=== PATIENT | male | born 1980 | race Caucasian/White ===

== ENCOUNTER 2017-08-18 16:14 | Inpatient (IN) | payer BC ==
[~2017-08-18] VITALS: Ht 177.8 cm; Wt 76.2 kg
[2017-08-18] MEDS ORDERED: SUCR1TAB PO (16:30)
[2017-08-18] MEDS ORDERED: PANT40TA2 PO (16:30)
[2017-08-18] MEDS ORDERED: PANTOPRAZOLE SODIUM IV 80 MG in IV DEXTROSE 5% 100 ML IV ONE (16:30)
[2017-08-18] MEDS ORDERED: PANTOPRAZOLE SODIUM IV 80 MG in IV DEXTROSE 5% 500 ML IV ONE (16:30)
[2017-08-18] MEDS ORDERED: CEFTRIAXONE 1 G in IV DEXTROSE 5% 50 ML IV ONE (16:30)
[2017-08-18] MEDS ORDERED: OCTREOTIDE ACETATE DRIP 1,250 MCG in IV NORMAL SALINE 250 ML IV ONE (16:30)
[2017-08-18] MEDS ORDERED: SPIR50TA3 PO (16:30)
[2017-08-18] MEDS ORDERED: OCTREOTIDE ACETATE IV ONE (16:30)
[2017-08-18] MEDS ORDERED: NORMAL SALINE IV ONE (16:30)
[2017-08-18] MEDS ORDERED: IV NORMAL SALINE 1000 ML BAG IV ONE ×2 (16:30→21:29)
[2017-08-18 16:58] LABS: BASOPHILS % (AUTO) 0.2 % (0.0-2.0); EOSINOPHILS # (AUTO) 0.1 K/uL (0.0-0.7); EOSINOPHILS % (AUTO) 3.1 % (0.0-7.0); HEMATOCRIT 26.6 % (40-50); HEMOGLOBIN 8.4 G/DL (14.0-18.0); LYMPHOCYTES # (AUTO) 0.4 K/UL (0.8-4.8); LYMPHOCYTES % (AUTO) 12.7 % (20.5-51.5); MEAN CORPUSCULAR HEMOGLOBIN 23.5 UUG (27.0-31.0); MEAN CORPUSCULAR HGB CONC 31 g/dL (32.0-37.0); MEAN CORPUSCULAR VOLUME 74.6 FL (82.0-92.0); MONOCYTES # (AUTO) 0.2 K/UL (0.1-1.30); MONOCYTES % (AUTO) 6.3 % (0.0-11.0); NEUTROPHILS # (AUTO) 2.5 K/UL (1.8-8.9); NEUTROPHILS % (AUTO) 77.7 % (38.5-71.5); RED BLOOD CELL COUNT(AUTO) 3.56 MIL/UL (4.7-6.1); WHITE BLOOD COUNT (AUTO) 3.2 K/UL (4.0-11.2)
[2017-08-18] MEDS ORDERED: ONDANSETRON IV *ER 4 MG/2 ML VIAL IV ONE ×2 (17:00→17:15)
[2017-08-18] MEDS ORDERED: CEFTRIAXONE 1 G VIAL ONE (17:05)
[2017-08-18] MEDS ORDERED: ONDANSETRON 4 MG/2 ML VIAL ONE ×2 (17:05→17:27)
[2017-08-18] MEDS ORDERED: PANTOPRAZOLE SODIUM 40 MG VIAL ONE (17:05)
[2017-08-18 17:07] LABS: CREATININE 0.7 mg/dL (0.6-1.3); POTASSIUM 4.3 mmol/L (3.5-5.1)
--- NOTE | 2017-08-18 17:07 | NUR ---
1641- [employer] L[employer] CENTERER AND EDGER Bhavesh inserted PIV lines to both forearms with sterile technique
[2017-08-18 17:11] LABS: BILIRUBIN,DIRECT 0.4 mg/dL (0.0-0.2); BILIRUBIN,TOTAL 1.3 mg/dL (0.2-1.0); TOTAL PROTEIN, SERUM 6.2 g/dL (6.4-8.2)
[2017-08-18 17:15] LABS: PLATELET COUNT (AUTO) 42 K/UL (150-450)
--- NOTE | 2017-08-18 18:35 | NUR ---
Per nursing supervisor pile driving Constance, it will be "after change of shift" when patient can go to [facility]. No [facility] nurse available at this time. Patient notified.
[2017-08-18 18:43] LABS: EOSINOPHILS % (MANUAL) 3 % (0-8); LYMPHOCYTES % (MANUAL) 12 % (20-40); MONOCYTES % (MANUAL) 5 % (2-10); NEUTROPHILS % (MANUAL) 80 % (42-75)
--- NOTE | 2017-08-18 18:54 | NUR ---
Patient c/o severe abdominal pains, denies nausea, MD notified. Comfort and safety measures maintained. Extra warm blankets provided, still for an accepting [facility] nurse at this time.
[2017-08-18] MEDS ORDERED: HYDROMORPHONE 1 MG/1 ML DISP.SYRIN IV ONE (19:00)
--- NOTE | 2017-08-18 19:09 | NUR ---
Received report from AMEYA Szymanski. Assumed care of pt at this time. Admission pending.
[2017-08-18] MEDS ORDERED: HYDROMORPHONE 2 MG/1 ML DISP.SYRIN ONE (19:10)
--- NOTE | 2017-08-18 19:39 | NUR ---
Pt active vomiting of dark red blood approx [address] Melton notified and pt medicated. Will monitor for effects of medication. Pt resting in position of comfort for self
[2017-08-18] MEDS ORDERED: METOCLOPRAMIDE HCL 10 MG/2 ML VIAL IV ONE (19:45)
[2017-08-18] MEDS ORDERED: METOCLOPRAMIDE HCL 10 MG/2 ML VIAL ONE (19:48)
--- NOTE | 2017-08-18 19:50 | NUR ---
No further vomiting noted. at bedside.
--- NOTE | 2017-08-18 19:57 | NUR ---
Report given to AMEYA Gonzalez. Preparing to transfer pt to the floor.
--- NOTE | 2017-08-18 20:05 | NUR ---
Delay in transfer of pt to the floor per Dr. Lancaster wanting to expedite pt's procedure by having it done here in the ER or in GI lab. Daina, nursing food service kitchen supervisor notified and awaiting call back.
--- NOTE | 2017-08-18 20:20 | NUR ---
Pt to have procedure done in GI lab. GI team called in and awaiting their arrival. Dr. Tesfaye and pt updated on plan of care.
[2017-08-18] MEDS ORDERED: ACETAMINOPHEN 650 MG SUPP.RECT RC PRN (20:30)
--- NOTE | 2017-08-18 20:30 | NUR ---
Pt resting in position of comfort for self. No obvious signs of distress. No further vomiting noted at this time. Pt denies abd pain but does complain of a minor sore throat from previous vomiting. Cont waiting arrival of GI lab team.
[2017-08-18 21:04] LABS: IRON, SERUM 26 ug/dL (50-175)
--- NOTE | 2017-08-18 21:05 | NUR ---
GI clinical lab assistant at bedside to take pt to GI lab, however requested pre-op forms other than consent completed prior to transfer.
--- NOTE | 2017-08-18 21:25 | NUR ---
Pt left ER via [facility] for GI lab with GI lab RNs.
[2017-08-18] MEDS ORDERED: LIDOCAINE HCL 1% 20 ML VIAL MC ONE (21:29)
[2017-08-18] MEDS ORDERED: PROPOFOL 200 MG/20 ML BOTTLE IV ONE (21:29)
[2017-08-18] MEDS ORDERED: PHYTONADIONE 10 MG/1 ML AMPUL ONE (23:18)
[2017-08-18] MEDS ORDERED: SUCRALFATE 1 G/10 ML LIQUID UDC ONE (23:18)
[2017-08-18 23:45] VITALS: BP 119/65
--- NOTE | 2017-08-18 23:45 | NUR ---
RECEIVED PATIENT FROM GI LAB S/P EGD WITH VARICEAL BANDING OF GASTRIC VARICES,CARDIAC PORTION OF STOMACH.PATIENT ALERT,ORIENTED,BP 123/69, NSR ON MONITOR,NO FURTHER NAUSEA/VOMITING NOTED, C/O HEADACHE,CONTINUE PROTONIX IV DRIP AND SANDOSTATIN IV DRIP ORDERED.
[2017-08-19] VITALS (13 sets, daily range): BP systolic 101–114; BP diastolic 54–65
[2017-08-19] MEDS: MORPHINE SULFATE 4 MG/1 ML DISP.SYRIN IV PRN ×3 (00:21→08:59)
[2017-08-19] MEDS ORDERED: PHYTONADIONE 10 MG/1 ML AMPUL IM ONE (00:30)
[2017-08-19] MEDS ORDERED: MORPHINE SULFATE 4 MG/1 ML DISP.SYRIN ONE (00:34)
--- NOTE | 2017-08-19 01:05 | NUR ---
MORPHINE 4 MG IV ADMIN FOR ABDOMINAL PAIN AND HEADACHE, PATIENT DOZING ON AND OFF, NOT IN ANY DISTRESS, VITAL SIGNS STABLE, NO NAUSEA.
[2017-08-19] MEDS: IV D5/ 0.9% NACL 1,000 ML IV PRN ×2 (01:22→17:24)
[2017-08-19] MEDS: PANTOPRAZOLE SODIUM IV 80 MG in IV DEXTROSE 5% 500 ML IV SCH ×2 (05:19→15:00)
[2017-08-19] MEDS ORDERED: SUCRALFATE 1 G/10 ML LIQUID UDC ONE (05:31)
[2017-08-19] MEDS ORDERED: SUCRALFATE 1 G/10 ML LIQUID UDC PO SCH ×2 (06:00→07:10)
--- NOTE | 2017-08-19 06:00 | NUR ---
patient remains stable,no s/s of active bleeding noted,tolerated fluid well,no further nausea, abdomen ascites/distended.nsr on monitor.
[2017-08-19 07:01] LABS: BILIRUBIN,TOTAL 1.1 mg/dL (0.2-1.0); CREATININE 0.8 mg/dL (0.6-1.3); MAGNESIUM 1.6 mg/dL (1.8-2.4); PHOSPHOROUS 4.2 mg/dL (2.5-4.9); POTASSIUM 4.1 mmol/L (3.5-5.1); TOTAL PROTEIN, SERUM 5.4 g/dL (6.4-8.2)
--- NOTE | 2017-08-19 07:15 | NUR ---
RECEIVED REPORT FROM VP CUSTOMER DEVELOPMENT NURSE, PATIENT IN BED, NO SOB, NO NAUSEA, NO EVIDENCE OF DISTRESS AT THIS TIME. PATIENT IS IN BED AWAKE, BED IN LOW POSITION, SIDE RAILS UP X2.
[2017-08-19 07:46] LABS: BASOPHILS % (AUTO) 0.4 % (0.0-2.0); EOSINOPHILS # (AUTO) 0.1 K/uL (0.0-0.7); EOSINOPHILS % (AUTO) 3.9 % (0.0-7.0); LYMPHOCYTES # (AUTO) 0.5 K/UL (0.8-4.8); LYMPHOCYTES % (AUTO) 16.5 % (20.5-51.5); MEAN CORPUSCULAR HEMOGLOBIN 24.4 UUG (27.0-31.0); MEAN CORPUSCULAR HGB CONC 32 g/dL (32.0-37.0); MEAN CORPUSCULAR VOLUME 75.4 FL (82.0-92.0); MONOCYTES # (AUTO) 0.2 K/UL (0.1-1.30); MONOCYTES % (AUTO) 8.1 % (0.0-11.0); NEUTROPHILS # (AUTO) 2.2 K/UL (1.8-8.9); NEUTROPHILS % (AUTO) 71.1 % (38.5-71.5)
[2017-08-19 08:05] LABS: RED BLOOD CELL COUNT(AUTO) 2.88 MIL/UL (4.7-6.1)
[2017-08-19 08:06] LABS: HEMATOCRIT 21.7 % (40-50); PLATELET COUNT (AUTO) 36 K/UL (150-450)
[2017-08-19] MEDS: ONDANSETRON 4 MG/2 ML VIAL IV PRN ×4 (09:36→20:22)
[2017-08-19 12:25] LABS: BAND % (MANUAL) 1 % (0-10); EOSINOPHILS % (MANUAL) 3 % (0-8); LYMPHOCYTES % (MANUAL) 15 % (20-40); MONOCYTES % (MANUAL) 6 % (2-10); NEUTROPHILS % (MANUAL) 75 % (42-75)
--- NOTE | 2017-08-19 13:00 | NUR ---
Blood transfusion administered, no reactions noted at this time. Patient tolerating well. No fever, no reactions.
[2017-08-19] MEDS: SUCRALFATE 1 G/10 ML LIQUID UDC PO SCH ×3 (13:33→21:59)
[2017-08-19] MEDS: MAGNESIUM SULFATE/D5W 100 ML IV SCH ×2 (14:00→15:00)
[2017-08-19] MEDS ORDERED: HYDROMORPHONE 1 MG/1 ML DISP.SYRIN IV PRN ×2 (15:15→18:15)
--- NOTE | 2017-08-19 17:00 | NUR ---
Patient had an episode of a large amount of bloody diarrhea (dark brown). Dr. Aguilar notified, no orders at this time. Patient also had on episode of emesis, clear yellow.
[2017-08-19] MEDS: HYDROMORPHONE 2 MG/1 ML DISP.SYRIN IV PRN ×2 (18:25→22:00)
--- NOTE | 2017-08-19 19:02 | NUR ---
Patient is currently in bed awake, no evidence of distress noted at this time. Bed is in low position, side rails up x2. All needs met.
--- NOTE | 2017-08-19 19:30 | NUR ---
nsg: pt received in bed. vomitting yellowish emesis. currently on protonix drip, and ivf. tele, SR. pt still looks pale. notified to hold off on clear liquids for now until n/v subsided. cont with treatment plan.
--- NOTE | 2017-08-19 19:45 | NUR ---
nsg: critical lab for platelet: 35,000 and h/h 8.3/26.3, notified Dr. Aguilar. received order to transfuse 1 unit prbc.
[2017-08-19 19:48] LABS: BASOPHILS % (AUTO) 0.2 % (0.0-2.0); EOSINOPHILS # (AUTO) 0.1 K/uL (0.0-0.7); EOSINOPHILS % (AUTO) 2.2 % (0.0-7.0); HEMATOCRIT 26.3 % (40-50); HEMOGLOBIN 8.3 G/DL (14.0-18.0); LYMPHOCYTES # (AUTO) 0.4 K/UL (0.8-4.8); LYMPHOCYTES % (AUTO) 11.9 % (20.5-51.5); MEAN CORPUSCULAR HEMOGLOBIN 24.3 UUG (27.0-31.0); MEAN CORPUSCULAR HGB CONC 32 g/dL (32.0-37.0); MEAN CORPUSCULAR VOLUME 76.7 FL (82.0-92.0); MONOCYTES # (AUTO) 0.2 K/UL (0.1-1.30); MONOCYTES % (AUTO) 7.6 % (0.0-11.0); NEUTROPHILS # (AUTO) 2.6 K/UL (1.8-8.9); NEUTROPHILS % (AUTO) 78.1 % (38.5-71.5); RED BLOOD CELL COUNT(AUTO) 3.43 MIL/UL (4.7-6.1); WHITE BLOOD COUNT (AUTO) 3.3 K/UL (4.0-11.2)
[2017-08-19 19:52] LABS: PLATELET COUNT (AUTO) 35 K/UL (150-450)
--- NOTE | 2017-08-19 22:30 | NUR ---
nsg: started transfusing 1 unit prbc. will cont to monitor.
[2017-08-20] VITALS (13 sets, daily range): BP systolic 104–113; BP diastolic 52–74
--- NOTE | 2017-08-20 01:30 | NUR ---
nsg: transfusion of prbc completed. tolerated well. v/s stable. tele SR.
[2017-08-20] MEDS: PANTOPRAZOLE SODIUM IV 80 MG in IV DEXTROSE 5% 500 ML IV SCH ×3 (02:13→23:32)
[2017-08-20] MEDS: ONDANSETRON 4 MG/2 ML VIAL IV PRN (03:45)
--- NOTE | 2017-08-20 05:31 | NUR ---
nsg: pt awake, denies nausea, pain at this time. comfortable. tele, SR. cont to monitor.
[2017-08-20 06:49] LABS: BILIRUBIN,TOTAL 1.6 mg/dL (0.2-1.0); CREATININE 0.8 mg/dL (0.6-1.3); PHOSPHOROUS 3.6 mg/dL (2.5-4.9); POTASSIUM 3.7 mmol/L (3.5-5.1); TOTAL PROTEIN, SERUM 5.4 g/dL (6.4-8.2)
[2017-08-20 07:30] LABS: BASOPHILS % (AUTO) 0.4 % (0.0-2.0); EOSINOPHILS # (AUTO) 0.1 K/uL (0.0-0.7); EOSINOPHILS % (AUTO) 4.3 % (0.0-7.0); HEMATOCRIT 25.3 % (40-50); HEMOGLOBIN 8.2 G/DL (14.0-18.0); LYMPHOCYTES # (AUTO) 0.3 K/UL (0.8-4.8); MEAN CORPUSCULAR HEMOGLOBIN 24.9 UUG (27.0-31.0); MEAN CORPUSCULAR HGB CONC 32 g/dL (32.0-37.0); MEAN CORPUSCULAR VOLUME 76.9 FL (82.0-92.0); MONOCYTES # (AUTO) 0.2 K/UL (0.1-1.30); MONOCYTES % (AUTO) 9.5 % (0.0-11.0); NEUTROPHILS # (AUTO) 1.9 K/UL (1.8-8.9); NEUTROPHILS % (AUTO) 73.8 % (38.5-71.5); RED BLOOD CELL COUNT(AUTO) 3.29 MIL/UL (4.7-6.1); WHITE BLOOD COUNT (AUTO) 2.5 K/UL (4.0-11.2)
[2017-08-20 07:38] LABS: PLATELET COUNT (AUTO) 38 K/UL (150-450)
[2017-08-20] MEDS: IV D5/ 0.9% NACL 1,000 ML IV PRN (07:54)
[2017-08-20] MEDS: SUCRALFATE 1 G/10 ML LIQUID UDC PO SCH ×4 (07:57→20:31)
--- NOTE | 2017-08-20 08:00 | NUR ---
awake alert and oriented, explained plan fo care- verbalized understanding, no nausea/vomiting noted, on Protonix drip at 50ml/hr, no bleeding noted, tele SR 70's, denies of abdominal pain, call light within reach
[2017-08-20 08:36] LABS: BAND % (MANUAL) 2 % (0-10); EOSINOPHILS % (MANUAL) 4 % (0-8); LYMPHOCYTES % (MANUAL) 13 % (20-40); MONOCYTES % (MANUAL) 8 % (2-10); NEUTROPHILS % (MANUAL) 73 % (42-75)
--- NOTE | 2017-08-20 12:00 | NUR ---
no bleeding noted, tolerating clear liquid, continue to monitor on [facility] status
--- NOTE | 2017-08-20 16:15 | NUR ---
downgraded by Dr Aguilar to med/surg, Dr Lancaster here with pt
[2017-08-20] MEDS ORDERED: PHYTONADIONE 10 MG/1 ML AMPUL SQ ONE (16:30)
--- NOTE | 2017-08-20 17:23 | NUR ---
in bed, no fresh bleeding noted, all needs attended and met, had a small black stool this shift, awaiting for 1 unit of PRBC-called blood bank and still working on it, call light within reach, no distress noted.
--- NOTE | 2017-08-20 18:15 | NUR ---
UNIT OF PRBC STARTED- INFORMED OF S/S OF BLOOD REACTION, WILL MONITOR CLOSELY, MALE VISITOR AT BEDSIDE
--- NOTE | 2017-08-20 19:30 | NUR ---
RECEIVED SHIFT REPORT FROM PREVIOUS SHIFT NURSE. PATIENT HAS BLOOD TRANSFUSING. PATIENT IN STABLE CONDITION. NO SIGNS/SYMPTOMS OF ADVERSE REACTIONS. NO SIGNS OF DISTRESS. VITAL SIGNS TAKEN AT 0730 AND THEY ARE STABLE. NO COMPLAINTS OF N/V OR PAIN. BED IN LOCKED, LOW POSITION WITH SIDE RAILS UP X2. SAFETY AND COMFORT PROVIDED.
[2017-08-21] MEDS: IV D5/ 0.9% NACL 1,000 ML IV PRN (00:26)
[2017-08-21 04:00] VITALS: BP 96/56
[2017-08-21 05:30] VITALS: BP 106/53
--- NOTE | 2017-08-21 06:15 | NUR ---
PATIENT SLEPT THROUGH MOST OF THE NIGHT. DID NOT EXPRESS ANY SIGNS/SYMPTOMS OF NAUSEA. NO VOMITING NOTED. NO COMPLAINTS OF PAIN. NO SIGNS OF BLEEDING. PATIENT IN STABLE CONDITION. NO SIGNS/SYMPTOMS OF DISTRESS. BED IN LOCKED/LOW POSITION WITH SIDE RAILS UP 2X. COMFORT AND SAFETY PROVIDED FOR PATIENT.
[2017-08-21] MEDS: SUCRALFATE 1 G/10 ML LIQUID UDC PO SCH ×2 (06:20→11:45)
--- NOTE | 2017-08-21 07:10 | NUR ---
Received patient asleep, lying on bed on a comfortable position with no signs and symptoms of SOB, distress or any discomforts. Patient easily aroused, alert and oriented. Call light within reach. All needs were attended and anticipated. Will continue to monitor patient closely.
--- NOTE | 2017-08-21 08:43 | NUR ---
Patient was seen and examined by Dr. Simone Aguilar with new order of hemoglobin and hematocrit check. Noted and carried out. patient made aware.
[2017-08-21 09:14] LABS: HEMOGLOBIN 9.1 G/DL (14.0-18.0)
[2017-08-21 09:16] LABS: HEMATOCRIT 28.4 % (40-50)
[2017-08-21] MEDS: PANTOPRAZOLE SODIUM IV 80 MG in IV DEXTROSE 5% 500 ML IV SCH (09:40)
--- NOTE | 2017-08-21 11:00 | NUR ---
Received patient hemoglobin result of 9.1 and hematocrit of 28.4. Reported lab results to Dr. Simone Aguilar with no new orders at this time. patient made aware.
[2017-08-21 11:49] VITALS: BP 110/63
--- NOTE | 2017-08-21 12:30 | NUR ---
patient awake, alert and oriented, lying on his bed on a high orosco's position while watching television with no signs and symptoms of distress, or SOB. Denies pain or discomforts at this time. All his needs were attended and anticipated. Call light placed within his reach. patient was encouraged to use call light whenever assistance is needed. Will continue to monitor closely.
--- NOTE | 2017-08-21 12:31 | NUR ---
Received new order from Dr. Simone Aguilar for discharge home. Patient was made aware and was very happy and grateful for the care he received. orders were noted and carried out.
--- NOTE | 2017-08-21 16:00 | NUR ---
Patient was discharged home in stable condition, picked up by family member with private vehicle. All belongings were complete, no missing items. Health teachings were provided to the patient and medication instructions were provided by Pharmacist. Patient verbalized his understanding of the teaching that was provided. MATRIX BATH ATTENDANT accompanied patient to the vehicle via wheelchair to the private car.
--- NOTE | 2017-08-23 09:03 | NUR ---
Faxed patient's Clinical Reviews and Discharge Summary to [facility] [ ; ].
== END 2017-08-21 15:35 | disposition home or self-care (01) | DRG 299 ==
LOC: ER 16:15 → DOU 20:08 → TELE-TD 23:37 → MED 08-20 15:35
PROVIDERS: ADMIT Internal Medicine; ATTEND Internal Medicine
PROC: 30233N1 Transfusion of Nonautologous Red Blood Cells into Peripheral Vein, Percutaneous Approach (ICD-10-PCS; principal; 2017-08-18 21:33)
PROC: 0W3P8ZZ Control Bleeding in Gastrointestinal Tract, Via Natural or Artificial Opening Endoscopic (ICD-10-PCS; principal; 2017-08-18 21:33)
DX: I86.4 Gastric varices (principal); E43 Unspecified severe protein-calorie malnutrition; K83.0 Cholangitis; D61.818 Other pancytopenia; D68.4 Acquired coagulation factor deficiency; K92.2 Gastrointestinal hemorrhage, unspecified; D62 Acute posthemorrhagic anemia; K74.60 Unspecified cirrhosis of liver; Z68.24 Body mass index [BMI] 24.0-24.9, adult; D73.1 Hypersplenism; D50.9 Iron deficiency anemia, unspecified; Z80.8 Family history of malignant neoplasm of other organs or systems; Z80.3 Family history of malignant neoplasm of breast
CPT/HCPCS: 36415; 43235; 71010; 83550; 83605; 83690; 83735; 84100; 85018; 85025; 85730; 86850; 86900; 86901; 86920; 87040; A4217; A4663; C9113; J0696; J1170; J2270; J2354; J2405; J2765; J3430; J3475; J3490; J7030; J7042; J7050; J7060; P9016-BL; P9021